=== PATIENT | female | born 1930 | race Caucasian/White ===

== ENCOUNTER 2019-05-02 09:36 | Emergency (ER) | payer MEDICARE, OTHER ==
[~2019-05-02] VITALS: Ht 149.9 cm; Wt 68.0 kg
--- OUTSIDE RECORDS SUMMARY | ~2019-05-02 | XMS | Clinical Summary ---
Demographics + + + | Address | [address] | | | [place] [address] | + + + | Home Phone | | + + + | Preferred Language | Unknown | + + + | Marital Status | | + + + | Restorationism Affiliation | 1025 | + + + | Race | Unknown | + + + | Ethnic Group | Unknown | + + + Author + + + | Author | [facility] | | | and [place] | + + + | Organization | [facility] | | | and [place] | + + + | Address | Unknown | + + + | Phone | Unavailable | + + + Support + + +---------+ + | Name | Relationship | Address | Phone | + + +---------+ + | Charisma Galindo | ECON | Unknown | | + + +---------+ + | Shay Galindo | ECON | Unknown | | + + +---------+ + Care Team Providers + +------+ + | Care Director Of National Sales Name | Role | Phone | + +------+ + | Paxton Herrera DO | PCP | Unavailable | + +------+ + Allergies No Known Allergies Medications + + + +---------+------+------+-------+ | Medication | Sig | Dispensed | Refills | Star | End | Statu | | | | | | t | Date | s | | | | | | Date | | | + + + +---------+------+------+-------+ | naproxen sodium | Take 220 mg by mouth | | 0 | | | Activ | | (ANAPROX) 220 MG | 2 times daily (with | | | | | e | | tablet | breakfast & | | | | | | | | dinner). | | | | | | + + + +---------+------+------+-------+ | apixaban (ELIQUIS) | Take 5 mg by mouth 2 | | 0 | | | Activ | | 5 mg tablet | times daily. | | | | | e | + + + +---------+------+------+-------+ | lisinopril | Take 20 mg by mouth | | 0 | | | Activ | | (PRINIVIL, ZESTRIL) | 2 times daily. | | | | | e | | 20 mg tablet | | | | | | | + + + +---------+------+------+-------+ | isosorbide | Take 30 mg by mouth | | 0 | | | Activ | | dinitrate (ISORDIL) | 2 times daily. | | | | | e | | 10 mg tablet | | | | | | | + + + +---------+------+------+-------+ | lovastatin | Take 20 mg by mouth | | 0 | | | Activ | | (MEVACOR) 20 mg | nightly. | | | | | e | | tablet | | | | | | | + + + +---------+------+------+-------+ | amLODIPine | Take 10 mg by mouth | | 0 | | | Activ | | (NORVASC) 10 MG | Daily. | | | | | e | | tablet | | | | | | | + + + +---------+------+------+-------+ | metoprolol | Take 50 mg by mouth | | 0 | | | Activ | | tartrate (LOPRESSOR) | 2 times daily. | | | | | e | | 50 mg tablet | | | | | | | + + + +---------+------+------+-------+ | levothyroxine | Take 50 mcg by mouth | | 0 | | | Activ | | (SYNTHROID, | every morning | | | | | e | | LEVOTHROID) 50 mcg | (before breakfast). | | | | | | | tablet | | | | | | | + + + +---------+------+------+-------+ | clonazePAM | Take 0.5 mg by mouth | | 0 | | | Activ | | (KLONOPIN) 0.5 mg | nightly. | | | | | e | | tablet | | | | | | | + + + +---------+------+------+-------+ | tapentadol | Take 50-100 mg by | | 0 | | | Activ | | (NUCYNTA) 50 mg TABS | mouth. | | | | | e | + + + +---------+------+------+-------+ | carvedilol (COREG) | Take 1 tablet by | | 0 | 05/0 | 05/0 | Activ | | 12.5 mg tablet | mouth 2 (two) times | | | 08/15 | 07/15 | e | | | daily with meals. | | | 19 | 20 | | + + + +---------+------+------+-------+ | diphenhydrAMINE | Take 25 mg by mouth | | 0 | | | Activ | | (BENADRYL) 25 MG | every 6 (six) hours | | | | | e | | capsule | as needed for | | | | | | | | Itching. | | | | | | + + + +---------+------+------+-------+ | losartan (COZAAR) | Take 100 mg by mouth | | 0 | | | Activ | | 100 MG tablet | daily. | | | | | e | + + + +---------+------+------+-------+ | melatonin 1 mg | Take 1 mg by mouth | | 0 | | | Activ | | TABS | nightly as needed | | | | | e | | | for Sleep. | | | | | | + + + +---------+------+------+-------+ | spironolactone | Take 1 tablet by | | 0 | 05/0 | 05/0 | Activ | | (ALDACTONE) 25 mg | mouth daily. | | | 2/20 | 1/20 | e | | tablet | | | | 19 | 20 | | + + + +---------+------+------+-------+ | torsemide | Take 20 mg by mouth | | 0 | | | Activ | | (DEMADEX) 20 mg | daily. | | | | | e | | tablet | | | | | | | + + + +---------+------+------+-------+ Active Problems + + + | Problem | Noted Date | + + + | A-fib | 01/28/2014 | + + + | Essential hypertension | 01/28/2014 | + + + | Chest pain, unspecified | 01/28/2014 | + + + | Hypothyroidism | 01/28/2014 | + + + Family History + + +------+ + | Medical History | Relation | Name | Comments | + + +------+ + | Stroke | Mother | | | + + +------+ + + +------+ + + | Relation | Name | Status | Comments | + +------+ + + | Brother | | | | | | | (Age | | | | | 74) | | + +------+ + + | Child | | Alive | | + +------+ + + | Child | | Alive | | + +------+ + + | Child | | Alive | | + +------+ + + | Father | | | | + +------+ + + | Mother | | | | + +------+ + + | Mother | | | | + +------+ + + | Sister | | | | | | | (Age | | | | | 80) | | + +------+ + + Social History + +-------+ +--------+ + | Tobacco Use | Types | Packs/Day | Years | Date | | | | | Used | | + +-------+ +--------+ + | Former Smoker | | | | Quit: 06/28/1955 | + +-------+ +--------+ + + +---+---+---+ | Smokeless Tobacco: | | | | | Never Used | | | | + +---+---+---+ + + | Comments: havn't smoked for 60 years | + + + + +---------+ + | Alcohol Use | Drinks/We | oz/Week | Comments | | | ek | | | + + +---------+ + | Yes | 7 Cans | 4.2 | Alcoholic Drinks/day: daily with lunch | | | of beer | | (just one beer) | + + +---------+ + + + + | Sex Assigned at | Date Recorded | | | | + + + | Not on file | | + + + + + + + | Job Start Date | Occupation | Industry | + + + + | Not on file | Not on file | Not on file | + + + + + + + + | Travel History | Travel Start | Travel End | + + + + + + | No recent travel history available. | + + Last Filed Vital Signs + + + + | Vital Sign | Reading | Time Taken | + + + + | Blood Pressure | 148/72 | 02/07/2019 1124 PDT | + + + + | Pulse | 57 | 02/07/20194 PDT | + + + + | Temperature | - | - | + + + + | Respiratory Rate | 16 | 02/15/2016 1425 PDT | + + + + | Oxygen Saturation | - | - | + + + + | Inhaled Oxygen | - | - | | Concentration | | | + + + + | Weight | 66.8 kg (147 lb 3.2 | 02/07/20191123 PDT | | | oz) | | + + + + | Height | 151.1 cm (4' 11.5") | 02/07/20191123 PDT | + + + + | Body Mass Index | 29.23 | 02/07/20191123 PDT | + + + + Plan of Treatment +--------+---------+ + + + | Date | Type | Specialty | Care Team | Description | +--------+---------+ + + + | 07/25/ | Office | Cardiology | Paez DO Nazia | | | 2019 | Visit | | [address] | | | | | | [place] | | | | | | [address] | | | | | | | | +--------+---------+ + + + + + + + + | Health Maintenance | Due Date | Last Done | Comments | + + + + + | Vaccine: | | | | | Dtap/Tdap/Td (1 - | 0 | | | | Tdap) | | | | + + + + + | Vaccine: Zoster (1 | | | | | of 2) | 1 | | | + + + + + | Vaccine: | | | | | Pneumococcal 65+ | 6 | | | | Low/Medium Risk (1 | | | | | of 2 - PCV13) | | | | + + + + + | Vaccine: Influenza | | | | | (#1) | 9 | | | + + + + + | Adult Annual | | | | | Wellness Visit | 9 | | | + + + + + Results Not on filefrom Last 3 Months Insurance + +--------+ +--------+ +---------+--------+ | Payer | Benefi | Subscriber | Effect | Phone | Address | Type | | | t Plan | ID | danni | | | | | | / | | Dates | | | | | | Group | | | | | | + +--------+ +--------+ +---------+--------+ | MEDICARE | MEDICA | [id number] | 10/24/18 | [phone] | | Medica | | | RE | | 96-Pre | 5 | | re | | | PART A | | sent | | | | | | AND B | | | | | | + +--------+ +--------+ +---------+--------+ | MEDICARE | MEDICA | [id number] | 10/24/18 | [phone] | | Medica | | | RE | | 96-Pre | 5 | | re | | | PART A | | sent | | | | | | AND B | | | | | | + +--------+ +--------+ +---------+--------+ | AETNA SENIOR | AETNA | [id number] | 12/25/19 | [phone] | | Indemn | | SUPPLEMENTAL INS | LIFE | | 16-Pre | 7 | | ity | | | INS CO | | sent | | | | | | MDCR | | | | | | | | SUPPL | | | | | | + +--------+ +--------+ +---------+--------+ | AETNA SENIOR | AMERIC | [id number] | 12/25/19 | [phone] | | Indemn | | SUPPLEMENTAL INS | AN | | 16-Pre | 7 | | ity | | | CONTIN | | sent | | | | | | ENTAL | | | | | | | | INS CO | | | | | | | | MDCR | | | | | | | | SUPPL | | | | | | + +--------+ +--------+ +---------+--------+ + +--------+ +--------+ + + | Guarantor Name | Accoun | Relation to | Date | Phone | Billing Address | | | t Type | Patient | of | | | | | | | | | | + +--------+ +--------+ + + | Yareli Recinos | Person | Self [birth year] | [address] | | | al/Fam | | 1931 | [phone] | [place] | | | jay | | | 1 (Home) | [address] | + +--------+ +--------+ + + | Yareli Recinos | Person | Self | [birth year] | [address] | | | al/Fam | | 1931 | [phone] | [place] | | | jay | | | 1 ([place]) | [address] | + +--------+ +--------+ + + Advance Directives Patient has advance care planning documents on file. For more information, please contact:[facility] [place] [address]
--- OUTSIDE RECORDS SUMMARY | ~2019-05-02 | XMS | Clinical Summary ---
Demographics + + + | Address | [address] | | | [place] [address] | + + + | Home Phone | | + + + | Preferred Language | Unknown | + + + | Marital Status | | + + + | Religion Affiliation | 1025 | + + + | Race | Unknown | + + + | Ethnic Group | Unknown | + + + Author + + + | Author | [facility] | | | and [place] | + + + | Organization | [facility] | | | and [...] Team Providers + +------+ + | Care Lithopress Operator Name | Role | Phone | + [...] [place] | | | | | | [address] | | | | | | | [...] +--------+ +---------+--------+ | MEDICARE | MEDICA | [id number] | 10/24/18 | [phone] | | Medica | | | RE | | 96-Pre | 5 | | re | | | PART A | | sent | | | | | | AND B | | | | | | + +--------+ +--------+ +---------+--------+ | MEDICARE | MEDICA | [id number] | 10/24/18 | [phone] | | Medica | | | RE | | 96-Pre | 5 | | re | | | PART A | | sent | | | | | | AND B | | | | | | + +--------+ +--------+ +---------+--------+ | AETNA SENIOR | AETNA | [id number] | 12/25/19 | [phone] | | Indemn | | SUPPLEMENTAL INS | LIFE | | 16-Pre | 7 | | ity | | | INS CO | | sent | | | | | | MDCR | | | | | | | | SUPPL | | | | | | + +--------+ +--------+ +---------+--------+ | AETNA SENIOR | AMERIC | [id number] | 12/25/19 | [phone] | | Indemn [...] Person | Self | [birth year] | [address] | | | al/Fam | | 1931 | [phone] | [place] | | | jay | | | 1 (Home) | [address] | + +--------+ +--------+ + + | Yareli Recinos | Person | Self | [birth year] | [address] | | | al/Fam | | 1931 | [phone] | [place] | | | jay | | | 1 ([place]) | [address] | + +--------+ +--------+ + + Advance Directives Patient has advance care planning documents on file. For more information, please contact:[place] [address]
--- OUTSIDE RECORDS SUMMARY | ~2019-05-02 | XMS | Encounter Summary ---
Demographics + + + | Address | [address] | | | [place] [address] | + + + | Home Phone | | + + + | Preferred Language | Unknown | + + + | Marital Status | | + + + | Zoroastrian Affiliation | 1025 | + + + | Race | Unknown | + + + | Ethnic Group | Unknown | + + + Author + + + | Author | [facility] (Historical as of | | | 02-09-19) | + + + | Organization | [facility] (Historical as of | | | 02-09-19) | + + + | Address | [...] | | + + +---------+ + | Teresa Seay | ECON | Unknown | | + + +---------+ + Care Team Providers + +------+ + | Care Lapidarist Name | Role | Phone | + +------+ + | Sherly Vizcaino PA-C | PCP | | + +------+ + Reason for Visit + + + | Reason | Comments | + + + | Follow-up | 3 month | + + + Encounter Details +--------+---------+ + + + | Date | Type | Department | Care Team | Description | +--------+---------+ + + + | 02/07/ | Office | [facility] | Nazia Paez DO | Paroxysmal atrial | | 2019 | Visit | Cardiology [place] | [address] | fibrillation (HCC) | | | | [address] | [place], [place] | (Primary Dx); | | | | [facility] [address] | [address] | Unspecified | | | | [place] [address] | | essential | | | | [phone] | | hypertension; Other | | | | | | hyperlipidemia | +--------+---------+ + + + Social History + +-------+ +--------+------+ | Tobacco Use | Types | Packs/Day | Years | Date | | | | | Used | | + +-------+ +--------+------+ | Former Smoker | | | | | + +-------+ +--------+------+ + +---+---+---+ | Smokeless Tobacco: | | | | | Never Used | | | | + +---+---+---+ + + | Comments: havn't smoked for 60 years | + + + + +---------+ + | Alcohol Use | Drinks/We | oz/Week | Comments | | | ek | | | + + +---------+ + | Yes | 1 Cans | 0.6 | daily with lunch (just one beer) | | | of beer | | | + + +---------+ + + + + | Sex Assigned at | Date Recorded | | | | + + + | Not on file | | + + + as of this encounter Last Filed Vital Signs + + + + | Vital Sign | Reading | Time Taken | + + + + | Blood Pressure | 148/72 | 02/07/2019 11:21 AM PDT | + + + + | Pulse | 57 | 02/07/2019 11:21 AM PDT | + + + + | Temperature | - | - | + + + + | Respiratory Rate | - | - | + + + + | Oxygen Saturation | 97% | 02/07/2019 11:21 AM PDT | + + + + | Inhaled Oxygen | - | - | | Concentration | | | + + + + | Weight | 66.8 kg (147 lb 3.2 | 02/07/2019 11:21 AM PDT | | | oz) | | + + + + | Height | 151.1 cm (4' 11.5") | 02/07/2019 11:21 AM PDT | + + + + | Body Mass Index | 29.23 | 02/07/2019 11:21 AM PDT | + + + + in this encounter Progress Notes Nazia Paez, - 02/07/2019 11:20 AM PDTFormatting of this note may be different from stefano mcdowell. [facility] Cardiology Cardiology Follow Up Note Reason for Consultation: Afib, HTN Requesting Physician: Sherly Vizcaino History Obtained From: patient HISTORY OF PRESENT ILLNESS: Cardiac Problem List 1. Paroxysmal afib 2. HTN- amlodipine caused leg swelling 3. HLD Non Cardiac Problem List 4. Hypothyroidism 5. Arthritis The patient is a 87yo female who presents to the cardiology office for initial consultation regarding paroxysmal atrial fibrillation and elevated blood pressures. 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 This occurred 5-6 years ago. She has not had any recurrence that she is theresa re of. She is on anticoagulation and tolerating it well without any bleeding issues. She is limited in her activity mainly due to issues with back pain and hip pain. She is able to do her ADLS but does have a house keeper to help with some house chores. She denies any episode s of chest pains or SOB. She reports some mild LE swelling which is unchanged. She denies an y orthopnea. Her BP has been elevated recently. Her BP at home is usually in the 150s at home. She repor ts that she has had issues with LE swelling while on amlodipine in the past. Interim History I last saw the patient on 10/25/2018. At that time, we discontinued metoprolol and started carvedilol for better blood pressure control. We also started spironolactone. She obtaine d blood work 1 week after making the most changes, which left unremarkable. She has been ch ecking her blood pressures at home. When she first made these changes, she noted that her b lood pressures were low, more recently they have leveled out and have been in the normal ran ge. She denies any lower extremity swelling. She is wondering if she can come off of her t orsemide 20 mg by mouth daily. She does have issues with incontinence, which she feels are worse with the torsemide. She denies any paroxysms of atrial fibrillation that she is aware of. She denies any bleeding episodes with the anticoagulation. Review of Systems Constitutional: Negative for fatigue. HENT: Negative for nosebleeds. Eyes: Negative for visual disturbance. Respiratory: Negative for cough and shortness of breath. Cardiovascular: see HPI Gastrointestinal: Negative for nausea, vomiting, abdominal pain and blood in stool. Genitourinary: Negative for hematuria or dysuria. Musculoskeletal: Negative for myalgias, back pain. She has arthritis. Skin: Negative for color change. Neurological: Negative for dizziness, syncope and numbness. Hematological: Does not bruise/bleed easily. Psychiatric/Behavioral: The patient is not nervous/anxious. PAST MEDICAL & SURGICAL HISTORY Past Medical History Diagnosis Date Atrial fibrillation (HCC) Hypertension Hypothyroid Thyroid disease Past Surgical History Procedure Laterality Date APPENDECTOMY CHOLECYSTECTOMY COLONOSCOPY HYSTERECTOMY NEPHRECTOMY 1965 right TONSILLECTOMY TOTAL HIP ARTHROPLASTY Left MEDICATIONS Home Medications Outpatient Encounter Prescriptions as of 02/07/2019 Medication Sig Dispense Refill apixaban (ELIQUIS) 5 MG tablet Take 5 mg by mouth 2 (two) times daily. carvedilol (COREG) 12.5 MG tablet Take 1 tablet by mouth 2 (two) times daily with meals . 180 tablet 5 clonazePAM (KLONOPIN) 0.5 MG tablet Take 0.5 mg by mouth nightly as needed. diphenhydrAMINE (BENADRYL) 25 mg capsule Take 25 mg by mouth every 6 (six) hours as nee ded for Itching. levothyroxine (SYNTHROID) 50 MCG tablet Take 50 mcg by mouth every morning before break fast. losartan (COZAAR) 100 MG tablet Take 100 mg by mouth daily. melatonin 1 MG tablet Take 1 mg by mouth nightly as needed for Sleep. spironolactone (ALDACTONE) 25 MG tablet Take 1 tablet by mouth daily. 30 tablet 11 [DISCONTINUED] lovastatin (MEVACOR) 20 MG tablet Take 20 mg by mouth nightly. [DISCONTINUED] torsemide (DEMADEX) 20 MG tablet Take 20 mg by mouth daily. No facility-administered encounter medications on file as of 02/07/2019. Allergies No Known Allergies FAMILY HISTORY Family History Problem Relation Age of Onset Stroke Mother SOCIAL HISTORY Social History Social History Marital status: Spouse name: N/A Number of children: N/A Years of education: N/A Occupational History Not on file. Social History Main Topics Smoking status: Former Smoker Smokeless tobacco: Never Used Comment: havn't smoked for 60 years Alcohol use 0.6 oz/week 1 Cans of beer per week Comment: daily with lunch (just one beer) Drug use: No Sexual activity: Yes Partners: Female Other Topics Concern Not on file Social History Narrative No narrative on file PHYSICAL EXAM Vital Signs: BP 148/72 (BP Location: Right upper arm, Patient Position: Sitting) | Pulse 5 7 | Ht 1.511 m (4' 11.5") | Wt 66.8 kg (147 lb 3.2 oz) | SpO2 97% | BMI 29.23 kg/m Physical Exam GENERAL: Well developed, well nourished, in no distress. Appears approximately stated age . HEENT: Normocephalic, atraumatic. EYES: PERRL, sclerae anicteric, no xanthelsasmas NECK: No JVD, lymphadenopathy, thyromegaly, bruits. Carotid pulses are 2+ bilaterally LUNGS: Clear bilaterally, with no rales, rhonchi or wheezing noted, respirations unlabored HEART: Nondisplaced PMI, regular rate and rhythm, S1, S2 normal. No murmurs, rubs or gall ops noted. ABDOMEN: Soft, nontender, no organomegaly, masses or bruits. Bowel sounds are normal in a ll 4 quadrants. EXTREMITIES: No edema. Radial pulses 2+ bilaterally. DP and PT pulses are 2+ bilaterally. SKIN: Warm and dry, capillary refill is normal, no lesions. NEUROLOGIC: Awake, alert and oriented x 3. No focal motor deficits. PSYCHIATRIC: Appropriate, affect appears normal DATA Recent blood work from 08/07/2018 reviewed including sodium 143, potassium 4.4, chloride 103 , carbon dioxide 31, glucose 101, calcium 9.6, BUN 24, creatinine 1.01 GFR 52 EK10/25/18 ordered and reviewed by myself. Sinus bradycardia 54BPM, LAD, non specific st-t wave changes Last Echo: 01/29/14 Impression 1. Essentially normal study. Last stress test:01/30/14 Impression 1. Normal myocardial perfusion study. 2. No evidence of pharmacologic stress induced ischemia or infarct. 3. Left ventricular ejection fraction is calculated at 76%. Last cath: Carotid US: AAA screening: Lower extremity US: OTHERS: ASSESSMENT & PLAN 1. Paroxysmal Atrial fibrillation 2. HTN 3. HLD 4. Sinus bradycardia - The patient is an 88 yo female who presents for follow up regarding paroxysmal afib and u ncontrolled HTN. She has only had one episode 5-6years ago without any recent paroxysms that she is aware of recently. [id number] is 4. She is on anticoagulation without any bleeding i ssues. Her BP is better controlled since we last saw each other. - Continue carvedilol 12.5mg po bid - Continue spironolactone 25mg po daily - Continue losartan 100mg po daily - continue torsemide 20mg po daily - continue lovastatin 20mg po daily - Continue apixaban 5mg po bid - Follow up in 6 months Thank you for allowing me to participate in the care of this patient. Primary Care Physician: Sherly Paez, 02/07/2019in this encounter Plan of Treatment Not on fileas of this encounter Visit Diagnoses + + | Diagnosis | + + | Paroxysmal atrial fibrillation (HCC) - Primary | + + | Atrial fibrillation | + + | Unspecified essential hypertension | + + | Other hyperlipidemia | + +
--- OUTSIDE RECORDS SUMMARY | ~2019-05-02 | XMS | Clinical Summary ---
Demographics + + + | Address | [address] | | | [place] [address] | + + + | Home Phone | | + + + | Preferred Language | Unknown | + + + | Marital Status | | + + + | Uatsdin Affiliation | 1025 | + + + | Race | Unknown | + + + | Ethnic Group | Unknown | + + + Author + + + | Author | [facility] (Historical as of | | | 02-09-19) | + + + | Organization | [facility] (Historical as of | | | 02-09-19) [...] Team Providers + +------+ + | Care Hide Mill Worker Name | Role | Phone | + +------+ + | Sherly Vizcaino PA-C | PP | | + +------+ + Allergies No Known Allergies Current Medications + + +--------+---------+------+------+-------+ | Prescription | Sig. | Disp. | Refills | Star | End | Statu | | | | | | t | Date | s | | | | | | Date | | | + + +--------+---------+------+------+-------+ | levothyroxine | Take 50 mcg by mouth | | | | | Activ | | (SYNTHROID) 50 MCG | every morning | | | | | e | | tablet | before breakfast. | | | | | | + + +--------+---------+------+------+-------+ | clonazePAM | Take 0.5 mg by mouth | | | | | Activ | | (KLONOPIN) 0.5 MG | nightly as needed. | | | | | e | | tablet | | | | | | | + + +--------+---------+------+------+-------+ | melatonin 1 MG | Take 1 mg by mouth | | | | | Activ | | tablet | nightly as needed | | | | | e | | | for Sleep. | | | | | | + + +--------+---------+------+------+-------+ | apixaban (ELIQUIS) | Take 5 mg by mouth 2 | | | | | Activ | | 5 MG tablet | (two) times daily. | | | | | e | + + +--------+---------+------+------+-------+ | diphenhydrAMINE | Take 25 mg by mouth | | | | | Activ | | (BENADRYL) 25 mg | every 6 (six) hours | | | | | e | | capsule | as needed for | | | | | | | | Itching. | | | | | | + + +--------+---------+------+------+-------+ | losartan (COZAAR) | Take 100 mg by mouth | | | | | Activ | | 100 MG tablet | daily. | | | | | e | + + +--------+---------+------+------+-------+ | carvedilol (COREG) | Take 1 tablet by | 180 | 5 | 05/0 | 05/0 | Activ | | 12.5 MG tablet | mouth 2 (two) times | tablet | | 2/20 | 1/20 | e | | | daily with meals. | | | 19 | 20 | | + + +--------+---------+------+------+-------+ | spironolactone | Take 1 tablet by | 30 | 11 | 05/0 | 05/0 | Activ | | (ALDACTONE) 25 MG | mouth daily. | tablet | | 2/20 | 1/20 | e | | tablet | | | | 19 | 20 | | + + +--------+---------+------+------+-------+ Active Problems + + + | Problem | Noted Date | + + + | Other hyperlipidemia | 02/10/2019 | + + + | Chest pain, unspecified | 01/28/2014 | + + + | A-fib | 01/28/2014 | + + + | Unspecified essential hypertension | 01/28/2014 | + + + | Unspecified hypothyroidism | 01/28/2014 | + + + Encounters +--------+---------+ + + + | Date | Type | Specialty | Care Team | Description | +--------+---------+ + + + | 02/07/ | Office | | Nazia Paez DO | Paroxysmal atrial | | 2019 | Visit | | | fibrillation (HCC) | | | | | | (Primary Dx); | | | | | | Unspecified | | | | | | essential | | | | | | hypertension; Other | | | | | | hyperlipidemia | +--------+---------+ + + + from Last 3 Months Family History + + +------+ + | Medical History | Relation | Name | Comments | + + +------+ + | Stroke | Mother | | | + + +------+ + + +------+ + + | Relation | Name | Status | Comments | + +------+ + + | Father | | | | + +------+ + + | Mother | | | | + +------+ + + Social History + +-------+ +--------+------+ [...] on file | | + + + Last Filed Vital Signs + + + + | Vital Sign | Reading | Time Taken | + + + + | Blood Pressure | 148/72 | 02/07/2019 11:21 AM PDT | + + + + | Pulse | 57 | 02/07/2019 11:21 AM PDT | + + + + | Temperature | 36.5 C (97.7 F) | 01/30/2014 11:04 AM PDT | + + + + | Respiratory Rate | 18 | 01/30/2014 11:04 AM PDT | + + + + [...] AM PDT | + + + + Plan of Treatment + + + + + | Health [...] | + + + + + | DEXA SCAN SCREENING | | | | | | 6 | | | + + + + [...] filefrom Last 3 Months Insurance + +--------+ +------+-------+ + | Payer | Benefi | Subscriber | Type | Phone | Address | | | t Plan | ID | | | | | | / | | | | | | | Group | | | | | + +--------+ +------+-------+ + | MEDICARE | MEDICA | [id number] | | | [address] | | | RE | | | | [place] [address] | | | IP-OP | | | | | + +--------+ +------+-------+ + | AETNA | AETNA | [id number] | | | | | | GENERI | | | | | | | C | | | | | + +--------+ +------+-------+ + + +--------+ +--------+ + + | Guarantor Name | Accoun | Relation to | Date | Phone | Billing Address | | | t Type | Patient | of | | | | | | | | | | + +--------+ +--------+ + + | YARELI FOURNIER | Person | Self [birth year] Home: | [address] | | | al/Fam | | 1931 | [phone] | [place] | | | jay | | | [phone] | [phone] | + +--------+ +--------+ + +
--- OUTSIDE RECORDS SUMMARY | ~2019-05-02 | XMS | Encounter Summary ---
Demographics + + + | Address | [address] | | | [place] [address] | + + + | Home Phone | | + + + | Preferred Language | Unknown | + + + | Marital Status | | + + + | Voodoo Affiliation | 1025 | + + + | Race | Unknown | + + + | Ethnic Group | Unknown | + + + Author + + + | Author | [facility] (Historical as of | | | 02-09-19) | + + + | Organization | [facility] (Historical as of | | | 02-09-19) [...] Team Providers + +------+ + | Care Laboratory Engineer Name | Role | Phone | + [...] + + | 02/07/ | Office | [facility] | Nazia Paez DO | Paroxysmal atrial | | 2019 | Visit | Cardiology [facility] | [address] | fibrillation (HCC) | | | | [address] | [place], [place] | (Primary Dx); | | | | [facility] [address] | [address] | Unspecified | | | | [place] [address] | | essential | | | | [phone] | | hypertension; Other | | | [...] note may be different from stefano mcdowell. [facility] Cardiology Follow Up Note Reason for [...] paroxysms that she is aware of recently. [id number] is 4. She is on anticoagulation without [...]
--- OUTSIDE RECORDS SUMMARY | ~2019-05-02 | XMS | Clinical Summary ---
Demographics + + + | Address | [address] | | | [place] [address] | + + + | Home Phone | | + + + | Preferred Language | Unknown | + + + | Marital Status | | + + + | Moravian Affiliation | 1025 | + + + | Race | Unknown | + + + | Ethnic Group | Unknown | + + + Author + + + | Author | [facility] (Historical as of | | | 02-09-19) | + + + | Organization | [facility] (Historical as of | | | 02-09-19) [...] Team Providers + +------+ + | Care Shop Welder Name | Role | Phone | + [...] +------+-------+ + | MEDICARE | MEDICA | [id number] | | | [address] | | | RE | | | | [place] [address] | | | IP-OP | | | | | + +--------+ +------+-------+ + | AETNA | AETNA | [id number] | | | | | | GENERI [...] | Self | [birth year] | Home: | [address] | | | al/Fam | | 1931 | [phone] | [place] | | | jay | | | [phone] | [phone] | + +--------+ +--------+ + +
[~2019-05-02 09:36] MED LIST: AMLODIPINE BESY10 MG PO; ANTIVERT25 MG PO; CLONAZEPAM0.5 MG PO; DIOVAN160 MG PO; ELIQUIS5 MG PO; HYDROCODON-ACE1 EA11 PO; HYDROMORPHONE HC2 MG PO; ISOSORBIDE DINI30 MG PO; ISOSORBIDE MONO30 MG PO; LEVOTHYROXINE50 MCG PO; LISINOPRIL20 MG PO; LOVASTATIN20 MG PO; MAPAP500 M1 PO; METOPROLOL SUCC50 MG PO; METOPROLOL TART50 MG PO; MIRALAX17 GM PO; PREDNISONE20 MG PO; SKELAXIN800 MG PO; ZIAC 2.5-6.25 MG1 EA PO
[2019-05-02] MEDS ORDERED: COREG12.5 MG PO (09:56)
[2019-05-02] MEDS ORDERED: BENADRYL25 MG PO (09:56)
[2019-05-02] MEDS ORDERED: ALDACTONE25 MG PO (09:57)
[2019-05-02] MEDS ORDERED: LOSARTAN POTAS100 MG PO (09:57)
[2019-05-02] MEDS ORDERED: ZITHROMAX250 MG PO (11:46)
== END 2019-05-02 11:55 | disposition home or self-care (01) ==
LOC: ED 09:36
DX: R05 Cough (principal); I10 Essential (primary) hypertension; I48.91 Unspecified atrial fibrillation; E03.9 Hypothyroidism, unspecified; Z88.5 Allergy status to narcotic agent; Z79.899 Other long term (current) drug therapy
CPT/HCPCS: 71045; 80048; 85025; 99283-25